=== PATIENT | male | born 1930 | race Caucasian/White ===

== ENCOUNTER → 2016-09-08 | Outpatient (CLI) | payer OTHER ==
[~2016-09-08] MED LIST: ASPECUNK PO; CITRACAL PO; GARLIC PO; LATA0.009 OP; LATA0.009 OPB; LISI-787 PO; LSN10 PO; MELA3TAB7 PO; MULT-506 PO; NMN10 PO; OMEG10007 PO; PRED-301 PO; PRN10125 PO; SIMV40TA2 PO; SLSS EXT; SPCCR30 TOP; VIACTIN PO; ZINC1CAP PO; [UNRECOGNIZED DRUG - CODE] PO; lycopene PO; selenium PO
== END | disposition home or self-care (01) ==
LOC: C.LABPVFM 10:53
PROVIDERS: ATTEND Internal Medicine Rheumatology
DX: M35.3 Polymyalgia rheumatica (principal)

== ENCOUNTER → 2016-10-21 | Outpatient (CLI) | payer OTHER | END | disposition home or self-care (01) | LOC: C.LABPVFM 13:41 | PROVIDERS: ATTEND Internal Medicine Rheumatology | DX: M35.3 Polymyalgia rheumatica (principal) ==

== ENCOUNTER → 2016-12-09 | Outpatient (CLI) | payer OTHER ==
[2016-12-09 12:52] LABS: BLOOD UREA NITROGEN 20 mg/dl (7-18); BUN/CREATININE RATIO 16.9 (10-20); CARBON DIOXIDE 33 mmol/L (21-32); CHLORIDE 107 mmol/L (98-107); GLUCOSE 93 mg/dl (70-99); POTASSIUM 3.8 mmol/L (3.5-5.1); SODIUM 144 mmol/L (136-145)
[2016-12-09 12:56] LABS: CHOLESTEROL 160 mg/dl (0-200); CHOLESTEROL/HDL RATIO 2.3; HDL CHOLESTEROL 69 mg/dl; LDL CHOLESTEROL CALCULATED 78 mg/dl; TRIGLYCERIDES 67 mg/dl (0-150); VERY LOW DENSITY LIPOPROT CALC 13 mg/dl
== END | disposition home or self-care (01) ==
LOC: C.LABPVFM 08:22
PROVIDERS: ATTEND Family Medicine
DX: E78.5 Hyperlipidemia, unspecified (principal); I10 Essential (primary) hypertension; M35.3 Polymyalgia rheumatica

== ENCOUNTER → 2017-02-22 | Outpatient (CLI) | payer OTHER | END | disposition home or self-care (01) | LOC: C.PATHSPEC 16:43 | PROVIDERS: ATTEND Dermatology | DX: L82.0 Inflamed seborrheic keratosis (principal) ==

== ENCOUNTER → 2017-02-23 | Outpatient (CLI) | payer OTHER | END | disposition home or self-care (01) | LOC: C.LABPVFM 10:08 | PROVIDERS: ATTEND Internal Medicine Rheumatology | DX: M35.3 Polymyalgia rheumatica (principal); Z79.52 Long term (current) use of systemic steroids ==

== ENCOUNTER 2017-04-22 08:15 | Observation (INO) | payer OTHER ==
[~2017-04-22] VITALS: Ht 172.7 cm; Wt 70.7 kg
[~2017-04-22 08:15] MED LIST changes: -LATA0.009 OP; -LISI-787 PO; -LSN10 PO; -NMN10 PO; -PRED-301 PO; -SPCCR30 TOP
[2017-04-22] MEDS ORDERED: SODIUM CHLORIDE 0.9% 1000ML 1,000 ML IV SCH (08:33)
--- NOTE | 2017-04-22 08:58 | DIAGNOSTIC IMAGING REPORT ---
HEAD WITHOUT CONTRAST (CT) CLINICAL HISTORY: 86 years-old Male with Stroke. Acute left-sided head pain without trauma TECHNIQUE: Multiple axial CT images of the head were obtained without contrast. A dose lowering technique was utilized adhering to the principles of ALARA. CT DOSE: 537.48 mGy.cm COMPARISON: Brain MRI 06/01/2016. FINDINGS: No acute intracranial hemorrhage, midline shift, mass, large territorial ischemia or abnormal extra-axial collection. Moderate atrophy with ex vacuo ventriculomegaly. There is of low-attenuation within the periventricular white matter suggests chronic microvascular ischemic changes. The calvarium is intact. There is a small amount of fluid noted within the bilateral middle ear cavities. There is mild ethmoid, maxillary and sphenoid sinus disease. Mastoid air cells are clear. Soft tissues are unremarkable and the orbits are symmetric. IMPRESSION: 1. No acute intracranial abnormality. 2. Atrophy with chronic microvascular ischemic changes. 3. Mild paranasal sinus disease. The above report was generated using voice recognition software. It may contain grammatical, syntax or spelling errors. Electronically signed by: Zia Briceno M.D. 04/22/2017 8:56 AM Dictated Date/Time: 04/22/2017 8:53 AM
[2017-04-22 09:02] LABS: BASO % 0.4 %; BASO ABS # 0.02 K/uL (0-0.2); COMPLETE YES; EOS % 2.7 %; HEMATOCRIT 47.2 % (42-52); LYMPH % 23.8 %; LYMPH ABS # 1.23 K/uL (1.2-3.4); MEAN CELL VOLUME 93.5 fL (80-100); MEAN CORPUSCULAR HEMOGLOBIN 31.3 pg (25-34); MEAN CORPUSCULAR HGB CONC 33.5 g/dl (32-36); MEAN PLATELET VOLUME 9.5 fL (7.4-10.4); MONO % 10.7 %; NEUT % 62.4 %; PLATELET COUNT 211 K/uL (130-400); RED BLOOD COUNT 5.05 M/uL (4.7-6.1); WHITE BLOOD COUNT 5.16 K/uL (4.8-10.8)
[2017-04-22 09:16] LABS: INR 0.9 (0.9-1.1); PARTIAL THROMBOPLASTIN RATIO 1.1
[2017-04-22 09:20] LABS: BLOOD UREA NITROGEN 21 mg/dl (7-18); BUN/CREATININE RATIO 17.3 (10-20); CALCIUM 9.4 mg/dl (8.5-10.1); CARBON DIOXIDE 33 mmol/L (21-32); CHLORIDE 103 mmol/L (98-107); GLUCOSE 93 mg/dl (70-99); POTASSIUM 3.4 mmol/L (3.5-5.1); SODIUM 139 mmol/L (136-145)
[2017-04-22 09:29] LABS: C-REACTIVE PROTEIN < 0.29 mg/dl (0-0.29); CKMB/CK RATIO 1.7 (0-3.0)
--- NOTE | 2017-04-22 09:37 | DIAGNOSTIC IMAGING REPORT ---
CHEST ONE VIEW PORTABLE HISTORY: 86 years-old Male Stroke acute left-sided head pain with strokelike symptoms. COMPARISON: Chest radiograph 05/21/2010 TECHNIQUE: Portable upright AP view of the chest FINDINGS: Cardiac silhouette is mildly enlarged. There is atherosclerosis of the aorta. There is no pneumothorax or pleural effusion. Linear subsegmental opacities are present within the left lung base. No lobar airspace consolidation. There is atherosclerosis of the aorta. The bones are grossly intact. IMPRESSION: Left lung base subsegmental atelectasis without acute cardiopulmonary process. The above report was generated using voice recognition software. It may contain grammatical, syntax or spelling errors. Electronically signed by: Zia Briceno M.D. 04/22/2017 9:35 AM Dictated Date/Time: 04/22/2017 9:34 AM
--- NOTE | 2017-04-22 09:49 | EMERGENCY ROOM VISIT NOTE ---
History Report prepared by Nara: Елена Crowe Under the Supervision of: Dr. Richie Chavez M.D. First contact with patient: 08:33 Chief Complaint: HEAD PAIN Stated Complaint: THROBBING ON LEFT SIDE OF HEAD History of Present Illness The patient is a 86 year old male who presents to the Emergency Room with complaints of constant left-sided head pain for the past few hours. Per , the patient's pain started around 4am today. He is complaining of "throbbing" pain on the left side of his head. He rates his pain as an 8/10 in severity. It is not worsened with touching. The patient denies weakness, nausea, vomiting, and abdominal pain. He is currently on a prednisone taper as prescribed by his fan balancer. He does not take insulin. The patient does have HTN and did not take his medication this morning. He did not eat anything this morning. The patient takes baby aspirin but denies other blood thinners. 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 A total of 10 systems reviewed and were otherwise negative. Past Medical & Surgical Medical Problems: (1) Elevated troponin (2) Hypertension Family History Non-pertinent due to advanced age. Social History Smoking Status: Never Smoker Marital Status: Housing Status: lives with significant other Occupation Status: retired Current/Historical Medications Scheduled Econazole Nitrate (Econazole Nitrate Crm 1% 30 Gm), 1 DOSE TOP DIRECTED Latanoprost (Xalatan 0.005% Oph Destiney), 1 DROPS OP HS Lisinopril/Hctz (Zestoretic 20MG/12.5MG), 1 TAB PO DAILY Memantine (Namenda), 10 MG PO BID Prednisone (Prednisone), 5 MG PO DAILY Simvastatin (Zocor), 40 MG PO QPM Allergies Coded Allergies: No Known Allergies (Verified , ?, 04/22/17) Physical Exam Vital Signs Date Time Temp Pulse Resp B/P (MAP) Pulse Ox O2 Delivery O2 Flow Rate FiO2 04/22/17 10:10 97 Room Air 04/22/17 09:30 36.5 59 20 157/78 97 Room Air 04/22/17 09:05 65 20 166/79 97 Room Air 04/22/17 08:51 65 20 180/87 97 Room Air 04/22/17 08:50 97 Room Air 04/22/17 08:47 62 04/22/17 08:25 36.5 62 16 193/91 92 Room Air Physical Exam GENERAL: Patient is a healthy-appearing well-nourished elderly male. HEAD: Normocephalic atraumatic EYES: Ocular movements intact pupils equal and react to light OROPHARYNX mucous membranes are moist no exudates present no erythema or edema present NECK: Supple no nuchal rigidity CHEST: Good equal expansion LUNGS: Clear and equal to auscultation CARDIAC: Normal S1 and S2 ABDOMEN: Soft nontender no guarding BACK: No CVA tenderness EXTREMITIES: No pain upon palpation normal muscle strength in all groups no clubbing cyanosis or edema NEURO: Patient is following commands and answering questions appropriately. Alert and oriented x3 Cranial Nerves 2-12 grossly intact Medical Decision & Procedures ER Provider Diagnostic Interpretation: Radiology results as stated below per my review and radiologist interpretation: HEAD WITHOUT CONTRAST (CT) CLINICAL HISTORY: 86 years-old Male with Stroke. Acute left-sided head pain without trauma TECHNIQUE: Multiple axial CT images of the head were obtained without contrast. A dose lowering technique was utilized adhering to the principles of ALARA. CT DOSE: 537.48 mGy.cm COMPARISON: Brain MRI 06/01/2016. FINDINGS: No acute intracranial hemorrhage, midline shift, mass, large territorial ischemia or abnormal extra-axial collection. Moderate atrophy with ex vacuo ventriculomegaly. There is of low-attenuation within the periventricular white matter suggests chronic microvascular ischemic changes. The calvarium is intact. There is a small amount of fluid noted within the bilateral middle ear cavities. There is mild ethmoid, maxillary and sphenoid sinus disease. Mastoid air cells are clear. Soft tissues are unremarkable and the orbits are symmetric. IMPRESSION: 1. No acute intracranial abnormality. 2. Atrophy with chronic microvascular ischemic changes. 3. Mild paranasal sinus disease. The above report was generated using voice recognition software. It may contain grammatical, syntax or spelling errors. Electronically signed by: Zia Briceno M.D. 04/22/2017 8:56 AM Dictated Date/Time: 04/22/2017 8:53 AM CHEST ONE VIEW PORTABLE HISTORY: 86 years-old Male Stroke acute left-sided head pain with strokelike symptoms. COMPARISON: Chest radiograph 05/21/2010 TECHNIQUE: Portable upright AP view of the chest FINDINGS: Cardiac silhouette is mildly enlarged. There is atherosclerosis of the aorta. There is no pneumothorax or pleural effusion. Linear subsegmental opacities are present within the left lung base. No lobar airspace consolidation. There is atherosclerosis of the aorta. The bones are grossly intact. IMPRESSION: Left lung base subsegmental atelectasis without acute cardiopulmonary process. The above report was generated using voice recognition software. It may contain grammatical, syntax or spelling errors. Electronically signed by: Zia Briceno M.D. 04/22/2017 9:35 AM Dictated Date/Time: 04/22/2017 9:34 AM Laboratory Results 04/22/17 08:43 Red Blood Count 5.05, Mean Corpuscular Volume 93.5, Mean Corpuscular Hemoglobin 31.3, Mean Corpuscular Hemoglobin Concent 33.5, Mean Platelet Volume 9.5, Neutrophils (%) (Auto) 62.4, Lymphocytes (%) (Auto) 23.8, Monocytes (%) (Auto) 10.7, Eosinophils (%) (Auto) 2.7, Basophils (%) (Auto) 0.4, Neutrophils # (Auto ) 3.22, Lymphocytes # (Auto) 1.23, Monocytes # (Auto) 0.55, Eosinophils # (Auto ) 0.14, Basophils # (Auto) 0.02 04/22/17 08:43 Test 04/22/17 08:39 04/22/17 08:43 04/22/17 09:50 Bedside Prothrombin Time INR 1.0 (0.9-1.1) White Blood Count 5.16 K/uL (4.8-10.8) Red Blood Count 5.05 M/uL (4.7-6.1) Hemoglobin 15.8 g/dL (14.0-18.0) Hematocrit 47.2 % (42-52) Mean Corpuscular Volume 93.5 fL (80-100) Mean Corpuscular Hemoglobin 31.3 pg (25-34) Mean Corpuscular Hemoglobin Concent 33.5 g/dl (32-36) Platelet Count 211 K/uL (130-400) Mean Platelet Volume 9.5 fL (7.4-10.4) Neutrophils (%) (Auto) 62.4 % Lymphocytes (%) (Auto) 23.8 % Monocytes (%) (Auto) 10.7 % Eosinophils (%) (Auto) 2.7 % Basophils (%) (Auto) 0.4 % Neutrophils # (Auto) 3.22 K/uL (1.4-6.5) Lymphocytes # (Auto) 1.23 K/uL (1.2-3.4) Monocytes # (Auto) 0.55 K/uL (0.11-0.59) Eosinophils # (Auto) 0.14 K/uL (0-0.5) Basophils # (Auto) 0.02 K/uL (0-0.2) RDW Standard Deviation 46.1 fL (36.4-46.3) RDW Coefficient of Variation 13.5 % (11.5-14.5) Immature Granulocyte % (Auto) 0.0 % Immature Granulocyte # (Auto) 0.00 K/uL (0.00-0.02) Erythrocyte Sedimentation Rate 10 mm/hr (0-14) Prothrombin Time 10.0 SECONDS (9.0-12.0) Prothromb Time International Ratio 0.9 (0.9-1.1) Activated Partial Thromboplast Time 28.5 SECONDS (21.0-31.0) Partial Thromboplastin Ratio 1.1 Anion Gap 3.0 mmol/L (3-11) Est Creatinine Clear Calc Drug Dose 41.9 ml/min Estimated GFR () 62.6 Estimated GFR (Non- 54.0 BUN/Creatinine Ratio 17.3 (10-20) Calcium Level 9.4 mg/dl (8.5-10.1) Total Creatine Kinase 78 U/L (39-308) Creatine Kinase MB 1.3 ng/ml (0.5-3.6) Creatine Kinase MB Ratio 1.7 (0-3.0) C-Reactive Protein < 0.29 mg/dl (0-0.29) Bedside Glucose 122 mg/dl (70-99) Labs reviewed by ED physician. Medications Administered Medications (Trade) Dose Ordered Sig/May Route Start Time Stop Time Status Last Admin Dose Admin Sodium Chloride 1,000 ml @ 50 mls/hr Q20H IV 04/22/17 08:33 04/22/17 13:20 DC 04/22/17 09:16 50 MLS/HR Valacyclovir HCl (Valtrex Tab) 1,000 mg NOW STAT PO 04/22/17 09:10 04/22/17 09:11 DC 04/22/17 09:44 1,000 MG ECG Indication: other Rate (beats per minute): 60 Rhythm: sinus rhythm Findings: PVC, no acute ischemic change, other (old septal infarct) ED Course 0833: Past medical records reviewed. The patient was evaluated in room B12B. A complete history and physical examination was performed. 0833: NSS 1000 ml @ 50 mls/hr IV 0910: Valtrex tab 1000 mg PO 0942: I spoke with Dr. Mckeon. We discussed the patient's case. The patient will be evaluated by the [facility] for further management. 0944: I reassessed the patient at this time. He is feeling better and resting comfortably. I discussed the results and treatment plan with the patient and his family. I answered all pertaining questions that they had. They expressed understanding and verbalized agreement. Medical Decision Differential diagnosis: Etiologies such as metabolic, infection, hypo/hyperglycemia, electrolyte abnormalities, cardiac sources, intracerebral event, toxicologic, neurologic, as well as others were entertained. This is an 86-year-old male who presents emergency department complaining of left-sided head pain. In addition the patient also has a elevated blood pressure. The patient did not take his blood pressure medication today therefore was given lisinopril along with hydrochlorothiazide. Repeat exam revealed improvement the patient's symptoms. I actually believe after starting the patient's laboratory work as well as a CAT scan of the head and the fact that the patient has been on a prednisone taper first polymyalgia rheumatica that he may be suffering from an early zoster rash. However based on the fact that patient has an elevation in his troponin I did discuss the case with the hospitalist service who agreed to admit the patient. Patient family were in agreement with the treatment plan. Medication Reconcilliation Current Medication List: was personally reviewed by me Blood Pressure Screening Patient's blood pressure: Elevated blood pressure Blood pressure disposition: Referred to PCP Consults Time Called: [phone] Consulting Physician: Dr. Mckeon Returned Call: [phone] Mckeon. We discussed the patient's case. The patient will be evaluated by the [facility] for further management. Impression Primary Impression: Head pain Additional Impression: Hypertension Scribe Attestation The scribe's documentation has been prepared under my direction and personally reviewed by me in its entirety. I confirm that the note above accurately reflects all work, treatment, procedures, and medical decision making performed by me. Departure Information Dispostion Being Evaluated By Hospitalist Stephen Oshea M.D. (PCP) Patient Instructions My [facility] Problem Qualifiers Primary Impression: Head pain Headache type: unspecified Headache chronicity pattern: acute headache Intractability: not intractable Qualified Codes: R51 - Headache Additional Impression: Hypertension Hypertension type: unspecified Qualified Codes: I10 - Essential (primary) hypertension
[2017-04-22 10:10] VITALS: O2SAT 97; BMI 24.8
[2017-04-22] MEDS ORDERED: NMN10 PO (10:19)
[2017-04-22] MEDS ORDERED: SPCCR30 TOP (10:20)
[2017-04-22] MEDS ORDERED: PRED-301 PO (10:20)
[2017-04-22] MEDS ORDERED: LATA0.009 OP (10:20)
[2017-04-22] MEDS ORDERED: LISI-787 PO (10:20)
[2017-04-22] MEDS ORDERED: NITROGLYCERIN 0.4 MG SL PER TAB CHARGE SL PRN (10:45)
[2017-04-22] MEDS ORDERED: ONDANSETRON INJ 2 MG/ML 2 ML VIAL IV PRN (10:45)
[2017-04-22] MEDS ORDERED: ACETAMINOPHEN 325 MG TAB PO PRN (10:45)
[2017-04-22] MEDS ORDERED: ALUMINUM/MAGNESIUM/SIMETH (MAALOX MAX) 30 ML UDC PO PRN (10:45)
[2017-04-22 11:28] VITALS: Ht 172.7 cm; Wt 70.7 kg
[2017-04-22] MEDS ORDERED: IV FLUIDS COMPLETED PRN (12:00)
[2017-04-22 12:02] LABS: URINE APPEARANCE CLEAR (CLEAR); URINE BILIRUBIN NEG (NEG); URINE COLOR YELLOW; URINE NITRITE NEG (NEG); URINE PH 7.5 (4.5-7.5); URINE SPECIFIC GRAVITY 1.011 (1.000-1.030); UROBILINOGEN NEG (NEG); ZZUR CULT IF INDIC CLEAN CATCH NO
[2017-04-22 12:11] LABS: MANUAL MICROSCOPIC REQUIRED? NO; REVIEW REQ? NO
[2017-04-22 12:45] VITALS: BP 170/71; PULSE 55; TEMP 36.4; O2SAT 96
[2017-04-22] MEDS: ASPIRIN 81 MG ECTAB PO SCH (14:19)
[2017-04-22 15:03] VITALS: BP 178/71; PULSE 59; TEMP 36.7; O2SAT 97
[2017-04-22] MEDS: LISINOPRIL/HCTZ 20/12.5MG TAB PO SCH (15:24)
[2017-04-22 17:31] LABS: CKMB/CK RATIO 2.4 (0-3.0)
--- NOTE | 2017-04-22 18:40 | History and Physical ---
History & Physical Date & Time of Service: Apr 22, 2017 at 18:36 Chief Complaint: Elevated Troponin Primary Care Physician: Stephen Solano M.D. History of Present Illness This patient presented to the ER with a throbbing left-sided headache. He has a history of hypertension and most recently has medications increased by his primary care doctor. The patient has had accelerated hypertension in the ER however is difficult to track given his resting tremor. The patient also was found to have an elevated troponin although had 0 symptoms of chest pain or associated symptoms of chest pain. The headache improved in the ER without treatment. There was some concern that a small red papule on his left sikhism could be the start of zoster and he was given a dose of oral Valtrex and there was discussion whether this could be temporal arteritis given his history of PMR however his sedimentation rate is 10. The patient is agreeable observation to evaluate his elevated troponin and continue to control his blood pressure Past Medical/Surgical History Medical Problems: (1) Hypertension Status: Chronic Social History Smoking Status: Never Smoker Smokeless Tobacco Use: No Alcohol Use: socially Marital Status: Occupational Status: retired Immunizations History of Influenza Vaccine: Yes Influenza Vaccine Date: May 02, 2009 History of Tetanus Vaccine?: Yes Tetanus Immunization Date: Oct 02, 2006 History of Pneumococcal: Yes Pneumococcal Date: May 02, 2009 History of Hepatitis B Vaccine: No Multi-Drug Resistant Organisms History of MDRO: No Allergies Coded Allergies: No Known Allergies (Verified , ?, 04/22/17) Home Medications Scheduled Econazole Nitrate (Econazole Nitrate Crm 1% 30 Gm), 1 DOSE TOP DIRECTED Latanoprost (Xalatan 0.005% Oph Destiney), 1 DROPS OP HS Lisinopril/Hctz (Zestoretic 20MG/12.5MG), 1 TAB PO DAILY Memantine (Namenda), 10 MG PO BID Prednisone (Prednisone), 5 MG PO DAILY Simvastatin (Zocor), 40 MG PO QPM Review of Systems ROS: well nourished well developed, left-sided headache no jaw claudication No double vision blurry vision No problems with speech or swallowing No palpitations, chest pain or pressure No Wheezing or breathing issues No abdominal pain nausea vomiting diarrhea changes in appetite or weight No burning urine urine frequency or changes in color No focal joint pain or muscle pain No skin rashes or oral lesions No unusual bruising or bleeding No focused back pain or numbness or loss of strength No changes in memory or confusion Physical Exam Vital Signs Date Time Temp Pulse Resp B/P (MAP) Pulse Ox O2 Delivery O2 Flow Rate FiO2 04/22/17 16:15 Room Air 04/22/17 15:03 36.7 59 18 178/71 (106) 97 Room Air 04/22/17 12:45 36.4 55 18 170/71 (104) 96 Room Air 04/22/17 12:25 58 143/57 94 Room Air 04/22/17 11:34 63 20 159/83 94 Room Air 04/22/17 11:28 58 04/22/17 10:10 97 Room Air 04/22/17 09:30 36.5 59 20 157/78 97 Room Air 04/22/17 09:05 65 20 166/79 97 Room Air 04/22/17 08:51 65 20 180/87 97 Room Air 04/22/17 08:50 97 Room Air 04/22/17 08:47 62 04/22/17 08:25 36.5 62 16 193/91 92 Room Air General Appearance: WD/WN, + mild distress Head: normocephalic, atraumatic Eyes: PERRL, EOMI, sclerae normal, funduscopic exam normal, + pertinent finding (no temporal arterial pain to palpation) ENT: hearing grossly normal, pharynx normal Respiratory/Chest: chest non-tender, lungs clear, normal breath sounds Cardiovascular: regular rate, rhythm, no murmur Abdomen/GI: normal bowel sounds, non tender, soft Back: no CVA tenderness, no muscle spasm Extremities/Musculoskelatal: no pedal edema, normal range of motion Neurologic/Psych: alert, oriented x 3 Skin: + pertinent finding (1 small papule which could be a vesicle on his left temporal area.) Diagnostics Laboratory Results Results Past 24 Hours Test 04/22/17 08:39 04/22/17 08:43 04/22/17 09:50 04/22/17 11:17 Range/Units Bedside Prothrombin Time INR 1.0 0.9-1.1 Bedside Glucose 69 122 70-99 mg/dl White Blood Count 5.16 4.8-10.8 K/uL Red Blood Count 5.05 4.7-6.1 M/uL Hemoglobin 15.8 14.0-18.0 g/dL Hematocrit 47.2 42-52 % Mean Corpuscular Volume 93.5 80-100 fL Mean Corpuscular Hemoglobin 31.3 25-34 pg Mean Corpuscular Hemoglobin Concent 33.5 32-36 g/dl Platelet Count 211 130-400 K/uL Mean Platelet Volume 9.5 7.4-10.4 fL Neutrophils (%) (Auto) 62.4 % Lymphocytes (%) (Auto) 23.8 % Monocytes (%) (Auto) 10.7 % Eosinophils (%) (Auto) 2.7 % Basophils (%) (Auto) 0.4 % Neutrophils # (Auto) 3.22 1.4-6.5 K/uL Lymphocytes # (Auto) 1.23 1.2-3.4 K/uL Monocytes # (Auto) 0.55 0.11-0.59 K/uL Eosinophils # (Auto) 0.14 0-0.5 K/uL Basophils # (Auto) 0.02 0-0.2 K/uL RDW Standard Deviation 46.1 36.4-46.3 fL RDW Coefficient of Variation 13.5 11.5-14.5 % Immature Granulocyte % (Auto) 0.0 % Immature Granulocyte # (Auto) 0.00 0.00-0.02 K/uL Erythrocyte Sedimentation Rate 10 0-14 mm/hr Prothrombin Time 10.0 9.0-12.0 SECONDS Prothromb Time International Ratio 0.9 0.9-1.1 Activated Partial Thromboplast Time 28.5 21.0-31.0 SECONDS Partial Thromboplastin Ratio 1.1 Sodium Level 139 136-145 mmol/L Potassium Level 3.4 3.5-5.1 mmol/L Chloride Level 103 98-107 mmol/L Carbon Dioxide Level 33 21-32 mmol/L Anion Gap 3.0 3-11 mmol/L Blood Urea Nitrogen 21 7-18 mg/dl Creatinine 1.20 0.60-1.40 mg/dl Est Creatinine Clear Calc Drug Dose 41.9 ml/min Estimated GFR () 62.6 Estimated GFR (Non- 54.0 BUN/Creatinine Ratio 17.3 10-20 Random Glucose 93 70-99 mg/dl Calcium Level 9.4 8.5-10.1 mg/dl Total Creatine Kinase 78 39-308 U/L Creatine Kinase MB 1.3 0.5-3.6 ng/ml Creatine Kinase MB Ratio 1.7 0-3.0 Troponin I 0.123 0.111 0-0.045 ng/ml C-Reactive Protein < 0.29 0-0.29 mg/dl Test 04/22/17 11:20 04/22/17 16:06 04/22/17 16:37 Range/Units Urine Color YELLOW Urine Appearance CLEAR CLEAR Urine pH 7.5 4.5-7.5 Urine Specific [place] 1.011 1.000-1.030 Urine Protein NEG NEG Urine Glucose (UA) NEG NEG Urine Ketones NEG NEG Urine Occult Blood NEG NEG Urine Nitrite NEG NEG Urine Bilirubin NEG NEG Urine Urobilinogen NEG NEG Urine Leukocyte Esterase NEG NEG Bedside Glucose 101 70-99 mg/dl Total Creatine Kinase 58 39-308 U/L Creatine Kinase MB 1.4 0.5-3.6 ng/ml Creatine Kinase MB Ratio 2.4 0-3.0 Troponin I 0.106 0-0.045 ng/ml Diagnostic Radiology CT of head unremarkable CXR normal Normal EKG Impression Assessment and Plan 86-year-old male here with accelerated hypertension left-sided headache elevated troponin next Elevated troponin serial trending of troponin show slight decrease there will of them downward this may be from his hypertensive urgency pending echocardiogram and morning EKG no acute artery syndrome is suspected Hypertensive urgency continuing his lisinopril hydrochlorothiazide and initiating augmenting hydralazine if needed Possible zoster and a facial nerve distribution will continue Valtrex look for cutaneous manifestations Dementia this does limit his history continue his Namenda Asthma is stable at this time PMR will continue prednisone 5 watching the need of stress dose coverage Heparin for DVT prevention Advanced Directives Existing Living Will: Yes Existing Power of Technology Advisor: Yes VTE Prophylaxis VTE Risk Assessment Done? Y/N: Yes Risk Level: Moderate
[2017-04-22 18:41] VITALS: BP 135/75; PULSE 66; TEMP 36.7; O2SAT 95
[2017-04-22] MEDS: POTASSIUM CHLORIDE 20 MEQ TABCR PO SCH (19:51)
[2017-04-22] MEDS: MEMANTINE 10 MG TAB PO SCH (19:52)
[2017-04-22] MEDS: HEPARIN SOD 5000 UNIT/0.5 ML CARP SQ SCH (19:52)
[2017-04-22] MEDS ORDERED: SIMVASTATIN 40 MG TAB PO SCH (21:00)
[2017-04-22] MEDS ORDERED: LATANOPROST 0.005% OP SOLN 2.5 ML BTL OP SCH (21:00)
[2017-04-22] MEDS: HydrALAZINE HCL 20 MG/ML VIAL IV PRN (23:33)
[2017-04-23] VITALS (10 sets, daily range): BP systolic 94–186; BP diastolic 48–99; PULSE 61–81; TEMP 36–36.7; O2SAT 94–97
[2017-04-23 03:52] LABS: CKMB/CK RATIO 1.5 (0-3.0)
[2017-04-23] MEDS: HydrALAZINE HCL 20 MG/ML VIAL IV PRN (04:05)
[2017-04-23] MEDS: ASPIRIN 81 MG ECTAB PO SCH (08:03)
[2017-04-23] MEDS: MEMANTINE 10 MG TAB PO SCH (08:03)
[2017-04-23] MEDS: LISINOPRIL/HCTZ 20/12.5MG TAB PO SCH (08:04)
[2017-04-23] MEDS: HEPARIN SOD 5000 UNIT/0.5 ML CARP SQ SCH (08:04)
[2017-04-23] MEDS ORDERED: ECONAZOLE NITRATE 1% CRM 15 GM TUBE EXT SCH (09:00)
[2017-04-23] MEDS: POTASSIUM CHLORIDE 20 MEQ TABCR PO SCH (09:08)
[2017-04-23] MEDS ORDERED: LSN10 PO (09:24)
--- NOTE | 2017-04-23 09:25 | Discharge Instructions ---
Discharge Instructions Date of Service Apr 23, 2017. Admission Reason for Admission: Elevated Troponin Discharge Discharge Diagnosis / Problem: hypertensive urgency Discharge Goals Goal(s): Diagnostic testing, Therapeutic intervention Activity Recommendations Activity Limitations: resume your previous activity . Current Hospital Diet Patient's current hospital diet: AHA Diet (Heart Healthy) Discharge Diet Recommended Diet: Low Sodium Diet (2gm Na) Pending Studies Studies pending at discharge: no Medical Emergencies . Who to Call and When: Medical Emergencies: If at any time you feel your situation is an emergency, please call 911 immediately. . Non-Emergent Contact Non-Emergency issues call your: Primary Care Provider Call Non-Emergent contact if: temperature is above 101, your pain is unusual for you . . "Provider Documentation" section prepared by Renny Mckeon. . VTE Core Measure Inpt VTE Proph given/why not?: Unfractionated heparin SQ
--- NOTE | 2017-04-23 14:00 | Discharge Summary ---
Discharge Summary Date of Service Apr 23, 2017. Discharge Summary Admission Date: Apr 22, 2017 at 10:50 Discharge Date: Apr 23, 2017 Discharge Disposition: Home with services Principal Diagnosis: hypertensive urgency elevated troponin Problems/Secondary Diagnoses: (1) Hypertension Status: Chronic Immunizations: Have You Had Influenza Vaccine: Yes Influenza Vaccine Date: May 02, 2009 History of Tetanus Vaccine?: Yes Tetanus Immunization Date: Oct 02, 2006 History of Pneumococcal: Yes Pneumococcal Date: May 02, 2009 History of Hepatitis B Vaccine: No Medication Reconciliation New Medications: Lisinopril (Zestril) 10 Mg Tab 10 MG PO PM, #30 DOSE 6 Refills Continued Medications: Econazole Nitrate (Econazole Nitrate Crm 1% 30 Gm) 90 Appln/30 Gm Cr 1 DOSE TOP DIRECTED Latanoprost (Xalatan 0.005% Oph Destiney) 0.005 % Destiney 1 DROPS OP HS for 90 Days, #7.5 ML 3 Refills Lisinopril/Hctz (Zestoretic 20MG/12.5MG) Tab 1 TAB PO DAILY, TAB Memantine (Namenda) 10 Mg Tab 10 MG PO BID, TAB Prednisone (Prednisone) 5 Mg Tab 5 MG PO DAILY, TAB Simvastatin (Zocor) 40 Mg Tab 40 MG PO QPM, 0 Refills Discharge Exam Review of Systems: Constitutional: No fever, No chills Respiratory: No cough, No sputum Cardiovascular: No chest pain, No orthopnea Abdomen: No pain, No nausea Physical Exam: General Appearance: WD/WN, no apparent distress Eyes: PERRL, EOMI ENT: + pertinent finding (extremely hard of hearing) Respiratory/Chest: chest non-tender, lungs clear Cardiovascular: regular rate, rhythm, no murmur Abdomen / GI: normal bowel sounds, soft Hospital Course 86-year-old male here with accelerated hypertension left-sided headache elevated troponin next Elevated troponin serial trending of troponin show slight decrease expect this to be due from his hypertensive urgency ,morning EKG no acute artery syndrome is suspected Hypertensive urgency continuing his lisinopril hydrochlorothiazide and initiating p.m. lisinopril We have ruled out zoster is no progression of cutaneous manifestations Dementia this does limit his history continue his Namenda Asthma is stable at this time PMR will continue prednisone 5 has had no need of stress dose coverage His discharge in the care of his Total Time Spent: Greater than 30 minutes This includes examination of the patient, discharge planning, medication reconciliation, and communication with other providers. Discharge Instructions Please refer to the electronic Patient Visit Report (Discharge Instructions) for additional information. Additional Copies To Stephen Solano M.D.; Stephen Solano MD.
--- NOTE | 2017-04-23 14:10 | ECHOCARDIOGRAM REPORT ---
*NOTICE TO RECEIVING REPUBLICAN AGENCY This information is strictly Confidential and protected under [place] law. [place] law prohibits you from making any further disclosure of this information unless further disclosure is expressly permitted by the written consent of the person to whom it pertains or is authorized by law. A general authorization for the release of medical or other information is not sufficient for this purpose. Hospital accepts no responsibility if the information is made available to any other person, INCLUDING THE PATIENT. Interpretation Summary * Name: NIESHA PRATT Study Date: 04/23/2017 10:38 AM BP: 113/51 mmHg * Patient Location: C.2E\S\E202\S\1 HR: 95 * : 1930 (M/d/yyyy) Gender: Male Height: 68 in * Age: 86 yrs Ethnicity: [place] Weight: 163 lb * Ordering Physician: Renny Mckeon * Referring Physician: Self, Referred * Performed By: Serafin Lowery RDCS * * Reason For Study: Chest pain * BSA: 1.9 m2 * -- Conclusions -- * 1. Normal LV size. Borderline concentric LVH with sigmoid septum. No intracardiac gradient. * 2. Hyerdynamic LV. LVEF >70%. No regional wall motion abnormalities. * 3. Normal RV size and function. * 4. No signifcant valvular pathology. * 5. Normal estimated CVP. Procedure Details * A complete two-dimensional transthoracic echocardiogram was performed (2D, M-mode, Doppler and color flow Doppler). * The study was technically adequate. Left Ventricle * The left ventricle is grossly normal size. * The basal septum is thickened and angulated consistent with sigmoid septum. * There is borderline concentric left ventricular hypertrophy. * Ejection Fraction = >70 %. * No regional wall motion abnormalities noted. Right Ventricle * The right ventricle is grossly normal size. * The right ventricular systolic function is normal as assessed by tricuspid annular plane systolic excursion (TAPSE) (normal >1.5 cm). Atria * The left atrial size is normal. * Borderline right atrial enlargement. * No ASD detected; PFO is not assessed. Mitral Valve * The mitral valve is grossly normal. * There is no mitral valve stenosis. * Significant mitral regurgitation is absent. Tricuspid Valve * The tricuspid valve is not well visualized, but is grossly normal. * There is no tricuspid stenosis. * Significant tricuspid regurgitation is absent. Aortic Valve * The aortic valve opens well. * The aortic valve is trileaflet. * No hemodynamically significant valvular aortic stenosis. * There is no significant aortic regurgitation. Pulmonic Valve * The pulmonary valve is inadequately visualized, but the Doppler data is adequate for interpretation. * Pulmonic stenosis is absent. * Trace pulmonic valvular regurgitation. Great Vessels * The aortic root and proximal ascending aorta are normal sized. Pericardium/Pleural * There is no pericardial effusion. Great Vessels * Normal inferior vena cava size and collapsability with sniff indicates a normal right atrial pressure of 3 mmHg MMode 2D Measurements and Calculations IVSd 0.95 cm IVSs 1.6 cm LVIDd 5.0 cm LVIDs 2.1 cm LVPWd 0.96 cm LVPWs 1.6 cm IVS/LVPW 10 FS 57.8 % EDV(Teich) 119.7 ml ESV(Teich) 14.8 ml EF(Teich) 87.6 % EDV(cubed) 127.0 ml ESV(cubed) 9.6 ml EF(cubed) 92.5 % % IVS thick 63.2 % % LVPW thick 65.4 % LV mass(C)d 172.5 grams LV mass(C)dI 92.1 grams/m\S\2 LV mass(C)s 113.6 grams LV mass(C)sI 60.7 grams/m\S\2 SV(Teich) 104.9 ml SI(Teich) 56.0 ml/m\S\2 SV(cubed) 117.4 ml SI(cubed) 62.7 ml/m\S\2 EPSS 0.61 cm Ao root diam 3.6 cm Ao root area 10.3 cm\S\2 ACS 2.3 cm LA dimension 3.8 cm asc Aorta Diam 3.8 cm LA/Ao 1.1 LVOT diam 2.4 cm LVOT area 4.5 cm\S\2 LVAd ap4 29.8 cm\S\2 LVLd ap4 8.2 cm EDV(MOD-sp4) 88.8 ml LVAs ap4 16.0 cm\S\2 LVLs ap4 6.8 cm ESV(MOD-sp4) 32.0 ml EF(MOD-sp4) 64.0 % LVAd ap2 25.3 cm\S\2 LVLd ap2 8.1 cm EDV(MOD-sp2) 65.3 ml LVAs ap2 13.6 cm\S\2 LVLs ap2 6.5 cm ESV(MOD-sp2) 23.2 ml EF(MOD-sp2) 64.5 % SV(MOD-sp4) 56.8 ml SI(MOD-sp4) 30.3 ml/m\S\2 SV(MOD-sp2) 42.1 ml SI(MOD-sp2) 22.5 ml/m\S\2 Doppler Measurements and Calculations MV E max ross 45.1 cm/sec MV A max ross 76.6 cm/sec MV E/A 0.59 MV dec time 0.16 sec Ao V2 max 122.6 cm/sec Ao max PG 6.0 mmHg Ao max PG (full) 2.5 mmHg CORAL(V,A) 3.4 cm\S\2 CORAL(V,D) 3.4 cm\S\2 LV V1 max PG 3.5 mmHg LV V1 max 93.6 cm/sec PA V2 max 118.3 cm/sec PA max PG 5.6 mmHg PA acc slope 1045.0 cm/sec\S\2 PA acc time 0.08 sec PI end-d ross 130.9 cm/sec PA pr(Accel) 44.1 mmHg
== END 2017-04-23 15:43 | disposition home or self-care (01) ==
LOC: C.EDB 08:16 → C.2E 10:50 → ENRESERV 11:40
PROVIDERS: ADMIT Internal Medicine; ATTEND Internal Medicine
DX: I16.0 Hypertensive urgency (principal); R79.89 Other specified abnormal findings of blood chemistry; F03.90 Unspecified dementia, unspecified severity, without behavioral disturbance, psychotic disturbance, mood disturbance, and anxiety; J45.909 Unspecified asthma, uncomplicated; Z79.899 Other long term (current) drug therapy

== ENCOUNTER → 2017-04-27 | Outpatient (CLI) | payer OTHER ==
[~2017-04-27] MED LIST changes: -ASPECUNK PO; -CITRACAL PO; -GARLIC PO; +LATA0.009 OP; -LATA0.009 OPB; +LISI-787 PO; +LSN10 PO; -MELA3TAB7 PO; -MULT-506 PO; +NMN10 PO; -OMEG10007 PO; +PRED-301 PO; -PRN10125 PO; -SLSS EXT; +SPCCR30 TOP; -VIACTIN PO; -ZINC1CAP PO; -[UNRECOGNIZED DRUG - CODE] PO; -lycopene PO; -selenium PO
== END | disposition home or self-care (01) ==
LOC: C.LABPVFM 10:30
PROVIDERS: ATTEND Internal Medicine Rheumatology
DX: R70.0 Elevated erythrocyte sedimentation rate (principal)

== ENCOUNTER → 2017-07-14 | Outpatient (CLI) | payer OTHER | END | disposition home or self-care (01) | LOC: C.LABPVFM 09:07 | PROVIDERS: ATTEND Internal Medicine Rheumatology | DX: M35.3 Polymyalgia rheumatica (principal); R76.8 Other specified abnormal immunological findings in serum; Z79.52 Long term (current) use of systemic steroids ==

== ENCOUNTER → 2017-09-01 | Outpatient (CLI) | payer OTHER ==
[2017-09-01 12:51] LABS: BASO % 0.6 %; BASO ABS # 0.03 K/uL (0-0.2); COMPLETE YES; EOS % 2.6 %; EOS ABS # 0.13 K/uL (0-0.5); HEMATOCRIT 43.9 % (42-52); HEMOGLOBIN 14.5 g/dL (14.0-18.0); IG# 0.01 K/uL (0.00-0.02); IG% 0.2 %; LYMPH ABS # 1.37 K/uL (1.2-3.4); MEAN CELL VOLUME 94.6 fL (80-100); MEAN CORPUSCULAR HEMOGLOBIN 31.3 pg (25-34); MEAN PLATELET VOLUME 9.9 fL (7.4-10.4); MONO % 8.9 %; MONO ABS # 0.45 K/uL (0.11-0.59); NEUT % 60.7 %; NEUT ABS # 3.09 K/uL (1.4-6.5); PLATELET COUNT 218 K/uL (130-400); RED BLOOD COUNT 4.64 M/uL (4.7-6.1); RED CELL DISTRIBUTION WIDTH CV 13.3 % (11.5-14.5); RED CELL DISTRIBUTION WIDTH SD 45.9 fL (36.4-46.3); WHITE BLOOD COUNT 5.08 K/uL (4.8-10.8)
[2017-09-01 13:57] LABS: CREATININE 1.21 mg/dl (0.60-1.40)
[2017-09-01 13:57] LABS: ALBUMIN 3.9 gm/dl (3.4-5.0); ALT/SGPT 17 U/L (12-78); AST/SGOT 22 U/L (15-37); EstGFR CKD-E NON AfrAm 53.5
[2017-09-01 13:59] LABS: ALKALINE PHOSPHATASE 53 U/L (45-117); TOTAL PROTEIN 7.3 gm/dl (6.4-8.2)
== END | disposition home or self-care (01) ==
LOC: C.LABPVFM 09:55
DX: M35.3 Polymyalgia rheumatica (principal)

== ENCOUNTER → 2017-09-15 | Outpatient (CLI) | payer OTHER | END | disposition home or self-care (01) | LOC: C.PATHSPEC 12:45 | PROVIDERS: ATTEND Physician Assistant | DX: K13.0 Diseases of lips (principal) ==

== ENCOUNTER → 2017-09-22 | Outpatient (CLI) | payer OTHER | END | disposition home or self-care (01) | LOC: C.PATHSPEC 17:30 | PROVIDERS: ATTEND Plastic Surgery | DX: C44.01 Basal cell carcinoma of skin of lip (principal) ==

== ENCOUNTER → 2017-10-12 | Outpatient (CLI) | payer OTHER | END | disposition home or self-care (01) | LOC: C.LABPVFM 11:04 | PROVIDERS: ATTEND Internal Medicine Rheumatology | DX: M35.3 Polymyalgia rheumatica (principal); M25.511 Pain in right shoulder; Z79.52 Long term (current) use of systemic steroids ==